=== PATIENT | female | born 1950 | race Caucasian/White ===

== ENCOUNTER → 2016-05-28 | Outpatient (REF) | payer MEDICARE, OTHER ==
[2016-05-28 12:31] LABS: ALBUMIN 3.7 GM/DL (3.2-5.2); ALBUMIN/GLOBULIN RATIO 1.09 (1.00-1.93); BILIRUBIN,TOTAL 0.4 MG/DL (0.2-1.0); CALCIUM LEVEL 8.7 MG/DL (8.8-10.2); CREATININE FOR GFR 1.02 MG/DL (0.55-1.02); GLOMERULAR FILTRATION RATE 57.9 (>45); POTASSIUM SERUM 4.4 MEQ/L (3.5-5.1); TOTAL PROTEIN 7.1 GM/DL (6.4-8.2)
== END ==
LOC: M SFHCCLAY 07:54
PROVIDERS: ATTEND Family Medicine
DX: E11.65 Type 2 diabetes mellitus with hyperglycemia (principal); E78.2 Mixed hyperlipidemia; E55.9 Vitamin D deficiency, unspecified

== ENCOUNTER → 2017-01-14 | Outpatient (REF) | payer MEDICARE, OTHER ==
[2017-01-14 11:53] LABS: ALBUMIN 3.8 GM/DL (3.2-5.2); ALBUMIN/GLOBULIN RATIO 1.19 (1.00-1.93); BILIRUBIN,TOTAL 0.4 MG/DL (0.2-1.0); CALCIUM LEVEL 8.7 MG/DL (8.8-10.2); GLOMERULAR FILTRATION RATE 59.1 (>45); POTASSIUM SERUM 4.4 MEQ/L (3.5-5.1)
== END ==
LOC: M SFHCCLAY 08:14
PROVIDERS: ATTEND Family Medicine
DX: E11.65 Type 2 diabetes mellitus with hyperglycemia (principal); E78.2 Mixed hyperlipidemia; E55.9 Vitamin D deficiency, unspecified

== ENCOUNTER → 2017-07-12 | Outpatient (REF) | payer MEDICARE, OTHER ==
[2017-07-12 12:03] LABS: TOTAL 25(OH) VITAMIN D 78.3 NG/ML (30.0-100.0)
[2017-07-12 12:11] LABS: ALBUMIN 3.8 GM/DL (3.2-5.2); ALBUMIN/GLOBULIN RATIO 1.15 (1.00-1.93); ALKALINE PHOSPHATASE 53 U/L (45-117); ALT/SGPT 27 U/L (12-78); ANION GAP 10 MEQ/L (8-16); AST/SGOT 17 U/L (7-37); BILIRUBIN,TOTAL 0.5 MG/DL (0.2-1.0); BLOOD UREA NITROGEN 25 MG/DL (7-18); CALCIUM LEVEL 9.1 MG/DL (8.8-10.2); CARBON DIOXIDE LEVEL 25 MEQ/L (21-32); CHLORIDE LEVEL 107 MEQ/L (98-107); CHOLESTEROL LEVEL 138 MG/DL (<200); CHOLESTEROL RISK RATIO 4.758 (<5); CREATININE FOR GFR 0.94 MG/DL (0.55-1.30); GLOMERULAR FILTRATION RATE > 60.0 (>45); GLUCOSE, FASTING 112 MG/DL (70-100); HDL CHOLESTEROL 29 MG/DL (>40); LDL CHOLESTEROL 81.8 MG/DL (<100); NON-HDL-C 109 MG/DL; POTASSIUM SERUM 4.6 MEQ/L (3.5-5.1); SODIUM LEVEL 142 MEQ/L (136-145); TOTAL PROTEIN 7.1 GM/DL (6.4-8.2); TRIGLYCERIDES LEVEL 136 MG/DL (<150)
[2017-07-12 12:45] LABS: ESTIMATED AVERAGE GLUCOSE 146 MG/DL (60-110); HEMOGLOBIN A1c 6.7 %
== END ==
LOC: M SFHCCLAY 08:04
DX: E11.65 Type 2 diabetes mellitus with hyperglycemia (principal); E78.2 Mixed hyperlipidemia; E55.9 Vitamin D deficiency, unspecified
CPT/HCPCS: 84443

== ENCOUNTER → 2018-01-13 | Outpatient (REF) | payer MEDICARE, OTHER ==
[2018-01-13 11:52] LABS: ALBUMIN 3.4 GM/DL (3.2-5.2); ALBUMIN/GLOBULIN RATIO 0.97 (1.00-1.93); ALKALINE PHOSPHATASE 97 U/L (45-117); ALT/SGPT 22 U/L (12-78); ANION GAP 10 MEQ/L (8-16); AST/SGOT 19 U/L (7-37); BILIRUBIN,TOTAL 0.5 MG/DL (0.2-1.0); BLOOD UREA NITROGEN 20 MG/DL (7-18); CALCIUM LEVEL 8.5 MG/DL (8.8-10.2); CARBON DIOXIDE LEVEL 26 MEQ/L (21-32); CHLORIDE LEVEL 106 MEQ/L (98-107); CHOLESTEROL LEVEL 133 MG/DL (<200); CHOLESTEROL RISK RATIO 4.586 (<5); CREATININE FOR GFR 0.93 MG/DL (0.55-1.30); GLOMERULAR FILTRATION RATE > 60.0 (>45); GLUCOSE, FASTING 108 MG/DL (70-100); HDL CHOLESTEROL 29 MG/DL (>40); LDL CHOLESTEROL 80 MG/DL (<100); NON-HDL-C 104 MG/DL; POTASSIUM SERUM 4.4 MEQ/L (3.5-5.1); SODIUM LEVEL 142 MEQ/L (136-145); TOTAL PROTEIN 6.9 GM/DL (6.4-8.2); TRIGLYCERIDES LEVEL 120 MG/DL (<150)
[2018-01-13 14:34] LABS: ESTIMATED AVERAGE GLUCOSE 140 MG/DL (60-110); HEMOGLOBIN A1c 6.5 %
== END ==
LOC: M SFHCCLAY 08:16
DX: E11.9 Type 2 diabetes mellitus without complications (principal); E78.2 Mixed hyperlipidemia
CPT/HCPCS: 80053

== ENCOUNTER → 2018-01-18 | Outpatient (REF) | payer MEDICARE, OTHER ==
[2018-01-18 20:03] LABS: CREATININE, URINE 47.3 MG/DL; MALB URINE SIEMENS < 5.0 MG/L
[2018-01-18 20:07] LABS: MAU/CREAT RATIO 10.6 MCG/MG (0.0-30.0)
== END ==
LOC: M SFHCCLAY 17:10
DX: E11.9 Type 2 diabetes mellitus without complications (principal)
CPT/HCPCS: 82043

== ENCOUNTER → 2018-07-31 | Outpatient (REF) | payer MEDICARE, OTHER ==
[~2018-07-31] MED LIST: ASPI81TA85 PO; ATOR1TAB21 PO; JANU100T PO; LOSARTAN/HCTZ PO; METF500T4 PO; OMEP40CA2 PO
[2018-07-31 12:01] LABS: BASO % 0.6 % (0.0-1.0); EOS # 0.2 10^3/uL (0.0-0.50); EOS % 3.3 % (0.0-3.0); HEMATOCRIT 35.9 % (36.0-47.0); HEMOGLOBIN 10.3 g/dl (12.0-15.5); LYMPH # 0.9 10^3/uL (1.5-4.5); LYMPH % 12.6 % (24.0-44.0); MEAN CORPUSCULAR HEMOGLOBIN 20.8 pg (27.0-33.0); MEAN CORPUSCULAR HGB CONC 28.7 g/dl (32.0-36.5); MEAN CORPUSCULAR VOLUME 72.4 fl (80.0-96.0); MONO # 0.6 10^3/uL (0.0-0.8); MONO % 8.4 % (0.0-5.0); NEUTROPHILS # 5.4 10^3/uL (1.8-7.7); NEUTROPHILS % 74.8 % (36.0-66.0); PLATELET COUNT, AUTOMATED 244 10^3/uL (150-450); RED BLOOD COUNT 4.96 10^6/uL (4.00-5.40); WHITE BLOOD COUNT 7.3 10^3/uL (4.0-10.0)
[2018-07-31 12:19] LABS: ALBUMIN 3.6 GM/DL (3.2-5.2); ALT/SGPT 20 U/L (12-78); BILIRUBIN,TOTAL 0.5 MG/DL (0.2-1.0); BLOOD UREA NITROGEN 21 MG/DL (7-18); CALCIUM LEVEL 8.6 MG/DL (8.8-10.2); CARBON DIOXIDE LEVEL 27 MEQ/L (21-32); CHLORIDE LEVEL 107 MEQ/L (98-107); CHOLESTEROL LEVEL 140 MG/DL (<200); CHOLESTEROL RISK RATIO 4.375 (<5); CREATININE FOR GFR 0.89 MG/DL (0.55-1.30); FREE T4 1.18 NG/DL (0.76-1.46); GLOMERULAR FILTRATION RATE > 60.0 (>45); GLUCOSE, FASTING 111 MG/DL (70-100); HDL CHOLESTEROL 32 MG/DL (>40); LDL CHOLESTEROL 82 MG/DL (<100); NON-HDL-C 108 MG/DL; POTASSIUM SERUM 4.6 MEQ/L (3.5-5.1); SODIUM LEVEL 140 MEQ/L (136-145); TRIGLYCERIDES LEVEL 130 MG/DL (<150)
[2018-07-31 12:27] LABS: TOTAL 25(OH) VITAMIN D 87.8 NG/ML (30.0-100.0)
[2018-08-03 21:06] LABS: FERRITIN 6 NG/ML (8-252); FOLATE 6.5 NG/ML (>5.4); IRON (FE) 26 UG/DL (50-170); PERCENT SATURATION 6.3 % (13.2-45.0); TOTAL IRON BINDING CAPACITY 413 UG/DL (250-450); VITAMIN B12 LEVEL 437 PG/ML (247-911)
== END ==
LOC: M SFHCCLAY 08:00
PROVIDERS: ATTEND Nurse Practitioner Family
DX: I10 Essential (primary) hypertension (principal); E78.2 Mixed hyperlipidemia; E11.9 Type 2 diabetes mellitus without complications; K21.9 Gastro-esophageal reflux disease without esophagitis; E55.9 Vitamin D deficiency, unspecified

== ENCOUNTER → 2018-08-17 | Outpatient (CLI) | payer MEDICARE, BC, OTHER ==
--- NOTE | 2018-08-18 08:02 | ECHO ---
DATE OF STUDY: 08/17/2018 REFERRING PROVIDER: Franci Hardy NP INDICATION: Heart murmur. HEIGHT: 163 cm. WEIGHT: 113 kg. DIMENSIONS: IVS: 1.2 LV: 4.6 LVPW: 1.0 LA: 3.9 Aorta: 2.7 IVC: 1.4 Mitral E wave velocity: 98 A-wave: 96 E prime septal: 7.6 E prime lateral: 7.6 Left atrial volume index 28 mL per meter square FINDINGS: This study is of acceptable technical quality especially considering the patient's body habitus. The patient is in sinus rhythm. Left ventricle is of normal size and systolic function, I estimate left ventricular ejection fraction (LVEF) 65-70%. Mild LVH is noted. Right ventricle is normal size and systolic function. Left atrium is of normal size. Right atrium was poorly visualized. Aortic valve appears mildly sclerotic. There is some restriction of cusp mobility, but by 2D imaging I do not assume more than mild aortic stenosis. Mitral, tricuspid and pulmonic valves appear normal. No pericardial effusion is noted. Inferior vena cava is of normal size. Aortic root and aortic arch appear normal. Abdominal aorta was not seen. Doppler interrogation of aortic valve reveals no insufficiency and mild stenosis with mean gradient of 14 mmHg. There is trace mitral and tricuspid insufficiency. Calculated pulmonary artery pressure is in 30s corresponding to mild pulmonary hypertension. Pulmonic valve exhibits trace insufficiency. Mitral inflow pattern and tissue Doppler imaging of mitral annulus reveal probably normal diastolic function of left ventricle even though tissue Doppler velocities are mildly reduced. CONCLUSIONS: 1. Study is of acceptable technical quality. 2. Borderline LVH with preserved LV systolic function and probably normal diastolic function. 3. Aortic sclerosis resulting into mild aortic stenosis (mean gradient 14 mmHg). 4. No further significant valvular disease. 5. Likely normal central venous pressure and mild pulmonary hypertension. COMMENTS: Subacute bacterial endocarditis (SBE) prophylaxis is not recommended. Followup echocardiogram is recommended in approximately 3-5 years.
== END ==
LOC: M CARPUL 07:57
PROVIDERS: ATTEND Nurse Practitioner Family
DX: I70.0 Atherosclerosis of aorta (principal)

== ENCOUNTER → 2019-02-01 | Outpatient (REF) | payer MEDICARE, OTHER ==
[~2019-02-01] MED LIST changes: +METF-791 PO; -METF500T4 PO; -OMEP40CA2 PO; +OMEP40CA97 PO
[2019-02-01 12:30] LABS: BASO % 0.4 % (0.0-1.0); EOS # 0.3 10^3/uL (0.0-0.5); EOS % 3.9 % (0.0-3.0); HEMATOCRIT 39.2 % (36.0-47.0); HEMOGLOBIN 11.3 g/dl (12.0-15.5); LYMPH # 0.9 10^3/uL (1.5-5.0); MEAN CORPUSCULAR HEMOGLOBIN 21.8 pg (27.0-33.0); MEAN CORPUSCULAR HGB CONC 28.8 g/dl (32.0-36.5); MEAN CORPUSCULAR VOLUME 75.5 fl (80.0-96.0); MONO # 0.6 10^3/uL (0.0-0.8); MONO % 8.4 % (0.0-5.0); NEUTROPHILS # 4.9 10^3/uL (1.5-8.5); PLATELET COUNT, AUTOMATED 241 10^3/uL (150-450); RED BLOOD COUNT 5.19 10^6/uL (4.00-5.40); WHITE BLOOD COUNT 6.7 10^3/uL (4.0-10.0)
[2019-02-01 12:34] LABS: PERCENT SATURATION 7.5 % (13.2-45.0)
== END ==
LOC: M SFHCCLAY 07:52
PROVIDERS: ATTEND Nurse Practitioner Family
DX: E61.1 Iron deficiency (principal); Z23 Encounter for immunization

== ENCOUNTER → 2019-09-28 | Outpatient (REF) | payer MEDICARE, OTHER ==
[~2019-09-28] MED LIST changes: -METF-791 PO; +METF-838 PO
[2019-09-28 12:33] LABS: BASO % 0.5 % (0.0-1.0); EOS # 0.2 10^3/uL (0.0-0.5); EOS % 2.6 % (0.0-3.0); HEMATOCRIT 42.5 % (36.0-47.0); HEMOGLOBIN 13.1 g/dl (12.0-15.5); MEAN CORPUSCULAR HEMOGLOBIN 23.9 pg (27.0-33.0); MEAN CORPUSCULAR HGB CONC 30.8 g/dl (32.0-36.5); MEAN CORPUSCULAR VOLUME 77.6 fl (80.0-96.0); MONO # 0.6 10^3/uL (0.0-0.8); MONO % 7.4 % (0.0-5.0); NEUTROPHILS # 5.6 10^3/uL (1.5-8.5); NEUTROPHILS % 75.2 % (36.0-66.0); PLATELET COUNT, AUTOMATED 243 10^3/uL (150-450); RED BLOOD COUNT 5.48 10^6/uL (4.00-5.40); WHITE BLOOD COUNT 7.4 10^3/uL (4.0-10.0)
[2019-09-28 12:50] LABS: ALBUMIN 3.7 GM/DL (3.2-5.2); ALT/SGPT 22 U/L (12-78); BILIRUBIN,TOTAL 0.6 MG/DL (0.2-1.0); BLOOD UREA NITROGEN 20 MG/DL (7-18); CALCIUM LEVEL 9.1 MG/DL (8.8-10.2); CARBON DIOXIDE LEVEL 28 MEQ/L (21-32); CHLORIDE LEVEL 107 MEQ/L (98-107); CHOLESTEROL LEVEL 143 MG/DL (<200); CHOLESTEROL RISK RATIO 4.612 (<5); CREATININE FOR GFR 0.88 MG/DL (0.55-1.30); FREE T4 1.12 NG/DL (0.76-1.46); GLOMERULAR FILTRATION RATE > 60.0 (>45); GLUCOSE, FASTING 101 MG/DL (70-100); HDL CHOLESTEROL 31 MG/DL (>40); IRON (FE) 37 UG/DL (50-170); LDL CHOLESTEROL 86 MG/DL (<100); NON-HDL-C 112 MG/DL; PERCENT SATURATION 10.1 % (13.2-45.0); POTASSIUM SERUM 4.6 MEQ/L (3.5-5.1); SODIUM LEVEL 141 MEQ/L (136-145); TOTAL IRON BINDING CAPACITY 365 UG/DL (250-450); TOTAL PROTEIN 7.1 GM/DL (6.4-8.2); TRIGLYCERIDES LEVEL 128 MG/DL (<150)
[2019-09-28 14:20] LABS: HEMOGLOBIN A1c 6.7 %
== END ==
LOC: M SFHCCLAY 07:59
PROVIDERS: ATTEND Nurse Practitioner Family
DX: E61.1 Iron deficiency (principal); K21.9 Gastro-esophageal reflux disease without esophagitis; E55.9 Vitamin D deficiency, unspecified; E78.2 Mixed hyperlipidemia; I10 Essential (primary) hypertension; E11.9 Type 2 diabetes mellitus without complications

== ENCOUNTER → 2019-10-02 | Outpatient (REF) | payer MEDICARE, OTHER ==
[2019-10-02 12:34] LABS: CREATININE, URINE 74.2 MG/DL; MALB URINE SIEMENS < 5.0 MG/L; MAU/CREAT RATIO 6.7 MCG/MG (0.0-30.0)
== END ==
LOC: M SFHCCLAY 11:35
PROVIDERS: ATTEND Nurse Practitioner Family
DX: E11.9 Type 2 diabetes mellitus without complications (principal)

== ENCOUNTER → 2020-02-19 | Outpatient (REF) | payer MEDICARE, OTHER ==
[~2020-02-19] MED LIST changes: -ASPI81TA85 PO; +ASPI81TA86 PO
[2020-02-19 12:08] LABS: BASO % 0.5 % (0.0-1.0); EOS # 0.2 10^3/uL (0.0-0.5); EOS % 2.9 % (0.0-3.0); HEMATOCRIT 40.3 % (36.0-47.0); HEMOGLOBIN 12.3 g/dl (12.0-15.5); LYMPH % 13.9 % (24.0-44.0); MEAN CORPUSCULAR HGB CONC 30.5 g/dl (32.0-36.5); MEAN CORPUSCULAR VOLUME 78.7 fl (80.0-96.0); MONO # 0.6 10^3/uL (0.0-0.8); MONO % 7.5 % (0.0-5.0); NEUTROPHILS # 5.6 10^3/uL (1.5-8.5); NEUTROPHILS % 74.8 % (36.0-66.0); PLATELET COUNT, AUTOMATED 223 10^3/uL (150-450); RED BLOOD COUNT 5.12 10^6/uL (4.00-5.40); WHITE BLOOD COUNT 7.5 10^3/uL (4.0-10.0)
[2020-02-19 12:23] LABS: HEMOGLOBIN A1c 6.1 %
[2020-02-19 12:42] LABS: ALBUMIN 3.6 GM/DL (3.2-5.2); BILIRUBIN,TOTAL 0.4 MG/DL (0.2-1.0); CALCIUM LEVEL 9.1 MG/DL (8.8-10.2); CHOLESTEROL RISK RATIO 4.032 (<5); CREATININE FOR GFR 1.07 MG/DL (0.55-1.30); FREE T4 1.19 NG/DL (0.76-1.46); GLOMERULAR FILTRATION RATE 54.1 (>45); POTASSIUM SERUM 4.8 MEQ/L (3.5-5.1); THYROID STIMULATING HORMONE 2.94 uIU/ML (0.358-3.740); TOTAL PROTEIN 6.7 GM/DL (6.4-8.2)
== END ==
LOC: M SFHCCLAY 07:50
PROVIDERS: ATTEND Nurse Practitioner Family
DX: E61.1 Iron deficiency (principal); K21.9 Gastro-esophageal reflux disease without esophagitis; E55.9 Vitamin D deficiency, unspecified; E78.2 Mixed hyperlipidemia; I10 Essential (primary) hypertension; E11.9 Type 2 diabetes mellitus without complications

== ENCOUNTER → 2020-09-09 | Outpatient (REF) | payer MEDICARE, OTHER ==
[2020-09-09 12:06] LABS: BASO # 0.1 10^3/uL (0.0-0.2); BASO % 0.6 % (0.0-1.0); EOS # 0.2 10^3/uL (0.0-0.5); EOS % 2.7 % (0.0-3.0); HEMATOCRIT 40.6 % (36.0-47.0); HEMOGLOBIN 12.7 g/dl (12.0-15.5); MEAN CORPUSCULAR HGB CONC 31.3 g/dl (32.0-36.5); MEAN CORPUSCULAR VOLUME 79.8 fl (80.0-96.0); MONO # 0.7 10^3/uL (0.0-0.8); MONO % 7.7 % (2.0-8.0); NEUTROPHILS # 6.6 10^3/uL (1.5-8.5); NEUTROPHILS % 76.5 % (36.0-66.0); PLATELET COUNT, AUTOMATED 221 10^3/uL (150-450); RED BLOOD COUNT 5.09 10^6/uL (4.00-5.40); WHITE BLOOD COUNT 8.6 10^3/uL (4.0-10.0)
[2020-09-09 12:49] LABS: ALBUMIN 3.5 GM/DL (3.2-5.2); ALT/SGPT 17 U/L (12-78); BILIRUBIN,TOTAL 0.6 MG/DL (0.2-1.0); BLOOD UREA NITROGEN 19 MG/DL (7-18); CALCIUM LEVEL 8.9 MG/DL (8.8-10.2); CARBON DIOXIDE LEVEL 26 MEQ/L (21-32); CHLORIDE LEVEL 106 MEQ/L (98-107); CHOLESTEROL LEVEL 125 MG/DL (<200); CHOLESTEROL RISK RATIO 3.676 (<5); CREATININE FOR GFR 0.87 MG/DL (0.55-1.30); FREE T4 1.05 NG/DL (0.76-1.46); GLOMERULAR FILTRATION RATE > 60.0 (>45); GLUCOSE, FASTING 105 MG/DL (70-100); HDL CHOLESTEROL 34 MG/DL (>40); LDL CHOLESTEROL 65 MG/DL (<100); NON-HDL-C 91 MG/DL; POTASSIUM SERUM 4.8 MEQ/L (3.5-5.1); SODIUM LEVEL 141 MEQ/L (136-145); TOTAL 25(OH) VITAMIN D 89.7 NG/ML (30.0-100.0); TRIGLYCERIDES LEVEL 131 MG/DL (<150)
[2020-09-09 13:24] LABS: HEMOGLOBIN A1c 6.3 %
== END ==
LOC: M SFHCCLAY 08:20
PROVIDERS: ATTEND Nurse Practitioner Family
DX: K21.9 Gastro-esophageal reflux disease without esophagitis (principal); E55.9 Vitamin D deficiency, unspecified; E78.2 Mixed hyperlipidemia; E11.9 Type 2 diabetes mellitus without complications; E66.01 Morbid (severe) obesity due to excess calories; I10 Essential (primary) hypertension

== ENCOUNTER → 2021-03-16 | Outpatient (REF) | payer MEDICARE, OTHER ==
[~2021-03-16] MED LIST changes: +OMEP40CA4 PO; -OMEP40CA97 PO
[2021-03-16 11:36] LABS: BASO # 0.1 10^3/uL (0.0-0.2); BASO % 0.7 % (0.0-1.0); EOS # 0.2 10^3/uL (0.0-0.5); EOS % 2.9 % (0.0-3.0); HEMATOCRIT 40.8 % (36.0-47.0); HEMOGLOBIN 12.4 g/dl (12.0-15.5); LYMPH % 15.1 % (24.0-44.0); MEAN CORPUSCULAR HEMOGLOBIN 23.8 pg (27.0-33.0); MEAN CORPUSCULAR HGB CONC 30.4 g/dl (32.0-36.5); MEAN CORPUSCULAR VOLUME 78.5 fl (80.0-96.0); MONO # 0.6 10^3/uL (0.0-0.8); MONO % 8.7 % (2.0-8.0); NEUTROPHILS # 4.9 10^3/uL (1.5-8.5); NEUTROPHILS % 72.2 % (36.0-66.0); PLATELET COUNT, AUTOMATED 229 10^3/uL (150-450); WHITE BLOOD COUNT 6.8 10^3/uL (4.0-10.0)
[2021-03-16 12:01] LABS: HEMOGLOBIN A1c 6.1 %
[2021-03-16 12:20] LABS: ALBUMIN 3.5 GM/DL (3.2-5.2); BILIRUBIN,TOTAL 0.6 MG/DL (0.2-1.0); CALCIUM LEVEL 9.2 MG/DL (8.8-10.2); CHOLESTEROL RISK RATIO 4.343 (<5); CREATININE FOR GFR 0.99 MG/DL (0.55-1.30); FREE T4 1.14 NG/DL (0.76-1.46); POTASSIUM SERUM 4.5 MEQ/L (3.5-5.1); THYROID STIMULATING HORMONE 2.17 uIU/ML (0.358-3.740); TOTAL PROTEIN 7.1 GM/DL (6.4-8.2)
== END ==
LOC: M SFHCCLAY 08:40
PROVIDERS: ATTEND Nurse Practitioner Family
DX: K21.9 Gastro-esophageal reflux disease without esophagitis (principal); E78.2 Mixed hyperlipidemia; E55.9 Vitamin D deficiency, unspecified; E11.9 Type 2 diabetes mellitus without complications; I10 Essential (primary) hypertension

== ENCOUNTER → 2021-09-30 | Outpatient (CLI) | payer MEDICARE, BC, OTHER | LOC: M CARPUL 08:16 | PROVIDERS: ATTEND Nurse Practitioner Family | DX: I35.8 Other nonrheumatic aortic valve disorders (principal) ==

== ENCOUNTER → 2021-10-05 | Outpatient (REF) | payer MEDICARE, OTHER ==
[2021-10-05 11:40] LABS: BASO # 0.1 10^3/uL (0.0-0.2); BASO % 0.7 % (0.0-1.0); EOS # 0.3 10^3/uL (0.0-0.5); EOS % 3.9 % (0.0-3.0); HEMATOCRIT 39.6 % (36.0-47.0); HEMOGLOBIN 12.2 g/dl (12.0-15.5); LYMPH # 1.2 10^3/uL (1.5-5.0); LYMPH % 16.7 % (24.0-44.0); MEAN CORPUSCULAR HEMOGLOBIN 24.1 pg (27.0-33.0); MEAN CORPUSCULAR HGB CONC 30.8 g/dl (32.0-36.5); MEAN CORPUSCULAR VOLUME 78.3 fl (80.0-96.0); MONO # 0.6 10^3/uL (0.0-0.8); MONO % 8.1 % (2.0-8.0); NEUTROPHILS # 5.1 10^3/uL (1.5-8.5); NEUTROPHILS % 70.3 % (36.0-66.0); PLATELET COUNT, AUTOMATED 211 10^3/uL (150-450); RED BLOOD COUNT 5.06 10^6/uL (4.00-5.40); WHITE BLOOD COUNT 7.3 10^3/uL (4.0-10.0)
[2021-10-05 11:57] LABS: HEMOGLOBIN A1c 7.1 %
[2021-10-05 12:49] LABS: ALBUMIN 3.5 GM/DL (3.2-5.2); BILIRUBIN,TOTAL 0.6 MG/DL (0.2-1.0); CALCIUM LEVEL 9.5 MG/DL (8.8-10.2); CHOLESTEROL RISK RATIO 4.406 (<5); CREATININE FOR GFR 1.1 MG/DL (0.55-1.30); FREE T4 1.14 NG/DL (0.76-1.46); GLOMERULAR FILTRATION RATE 52.3 (>39); POTASSIUM SERUM 4.8 MEQ/L (3.5-5.1); THYROID STIMULATING HORMONE 3.4 uIU/ML (0.358-3.740); TOTAL PROTEIN 7.1 GM/DL (6.4-8.2)
== END ==
LOC: M SFHCCLAY 08:04
PROVIDERS: ATTEND Nurse Practitioner Family
DX: E78.2 Mixed hyperlipidemia (principal); K21.9 Gastro-esophageal reflux disease without esophagitis; E55.9 Vitamin D deficiency, unspecified; E11.9 Type 2 diabetes mellitus without complications; I10 Essential (primary) hypertension; E66.01 Morbid (severe) obesity due to excess calories

== ENCOUNTER → 2022-04-05 | Outpatient (REF) | payer MEDICARE, OTHER ==
[2022-04-05 11:44] LABS: BASO # 0.1 10^3/uL (0.0-0.2); BASO % 0.6 % (0.0-1.0); EOS # 0.2 10^3/uL (0.0-0.5); EOS % 2.3 % (0.0-3.0); HEMATOCRIT 40.1 % (36.0-47.0); HEMOGLOBIN 12.1 g/dl (12.0-15.5); LYMPH # 1.2 10^3/uL (1.5-5.0); LYMPH % 13.9 % (24.0-44.0); MEAN CORPUSCULAR HEMOGLOBIN 23.8 pg (27.0-33.0); MEAN CORPUSCULAR HGB CONC 30.2 g/dl (32.0-36.5); MEAN CORPUSCULAR VOLUME 78.9 fl (80.0-96.0); MONO # 0.6 10^3/uL (0.0-0.8); MONO % 7.4 % (2.0-8.0); NEUTROPHILS # 6.3 10^3/uL (1.5-8.5); NEUTROPHILS % 75.4 % (36.0-66.0); PLATELET COUNT, AUTOMATED 224 10^3/uL (150-450); RED BLOOD COUNT 5.08 10^6/uL (4.00-5.40); WHITE BLOOD COUNT 8.3 10^3/uL (4.0-10.0)
[2022-04-05 11:57] LABS: HEMOGLOBIN A1c 5.8 % (4.0-6.0)
[2022-04-05 12:04] LABS: ALBUMIN 3.5 G/DL (3.2-5.2); BILIRUBIN,TOTAL 0.5 MG/DL (0.3-1.2); CALCIUM LEVEL 8.9 MG/DL (8.3-10.6); CHOLESTEROL RISK RATIO 3.72 (<5); CREATININE FOR GFR 1.02 MG/DL (0.55-1.30); GLOMERULAR FILTRATION RATE 56.9 (>39); HDL CHOLESTEROL 30.1 MG/DL (>40); LDL CHOLESTEROL 54.7 MG/DL (<100); POTASSIUM SERUM 4.8 MMOL/L (3.5-5.1); TOTAL 25(OH) VITAMIN D 109.2 NG/ML (20.0-100.0); TOTAL PROTEIN 6.8 G/DL (5.7-8.2)
== END ==
LOC: M SFHCCLAY 08:11
PROVIDERS: ATTEND Nurse Practitioner Family
DX: E55.9 Vitamin D deficiency, unspecified (principal); E78.2 Mixed hyperlipidemia; E11.9 Type 2 diabetes mellitus without complications; I10 Essential (primary) hypertension; Z79.899 Other long term (current) drug therapy

== ENCOUNTER → 2022-11-30 | Outpatient (REF) | payer MEDICARE, OTHER ==
[2022-11-30 12:14] LABS: BASO % 0.4 % (0.0-1.0); EOS # 0.1 10^3/uL (0.0-0.5); HEMATOCRIT 38.1 % (36.0-47.0); HEMOGLOBIN 11.4 g/dl (12.0-15.5); LYMPH % 14.2 % (24.0-44.0); MEAN CORPUSCULAR HEMOGLOBIN 22.9 pg (27.0-33.0); MEAN CORPUSCULAR HGB CONC 29.9 g/dl (32.0-36.5); MEAN CORPUSCULAR VOLUME 76.5 fl (80.0-96.0); MONO # 0.5 10^3/uL (0.0-0.8); MONO % 7.5 % (2.0-8.0); NEUTROPHILS # 5.2 10^3/uL (1.5-8.5); NEUTROPHILS % 75.5 % (36.0-66.0); PLATELET COUNT, AUTOMATED 209 10^3/uL (150-450); RED BLOOD COUNT 4.98 10^6/uL (4.00-5.40)
[2022-11-30 12:53] LABS: HEMOGLOBIN A1c 6.4 % (4.0-6.0)
[2022-11-30 13:14] LABS: ALBUMIN 3.6 G/DL (3.2-5.2); ALKALINE PHOSPHATASE 97 U/L (46-116); ALT/SGPT 12 U/L (7.0-40); AST/SGOT 9 U/L (<34); BILIRUBIN,TOTAL 0.6 MG/DL (0.3-1.2); BLOOD UREA NITROGEN 20 MG/DL (9-23); CALCIUM LEVEL 9.1 MG/DL (8.3-10.6); CARBON DIOXIDE LEVEL 26 MMOL/L (20-31); CHLORIDE LEVEL 106 MMOL/L (98-107); CHOLESTEROL LEVEL 120 MG/DL (<200); CHOLESTEROL RISK RATIO 4.04 (<5); CREATININE FOR GFR 0.95 MG/DL (0.55-1.30); GLOMERULAR FILTRATION RATE > 60.0 (>39); GLUCOSE, FASTING 116 MG/DL (74-106); HDL CHOLESTEROL 29.7 MG/DL (>40); IRON (FE) 33 UG/DL (50-170); LDL CHOLESTEROL 65.1 MG/DL (<100); NON-HDL-C 90.3 MG/DL; PERCENT SATURATION 9.1 % (13.2-45.0); POTASSIUM SERUM 4.9 MMOL/L (3.5-5.1); SODIUM LEVEL 141 MMOL/L (136-145); TOTAL IRON BINDING CAPACITY 361 UG/DL (250-425); TOTAL PROTEIN 6.7 G/DL (5.7-8.2); TRIGLYCERIDES LEVEL 126 MG/DL (<150)
[2022-11-30 13:15] LABS: THYROID STIMULATING HORMONE 3.562 uIU/ML (0.55-4.78); TOTAL 25(OH) VITAMIN D 97.6 NG/ML (20.0-100.0)
[2022-11-30 13:16] LABS: FREE T4 1.07 NG/DL (0.89-1.76)
== END ==
LOC: M SFHCCLAY 08:41
PROVIDERS: ATTEND Nurse Practitioner Family
DX: I10 Essential (primary) hypertension (principal); E11.9 Type 2 diabetes mellitus without complications; K21.9 Gastro-esophageal reflux disease without esophagitis; E55.9 Vitamin D deficiency, unspecified; E78.2 Mixed hyperlipidemia; E66.01 Morbid (severe) obesity due to excess calories; E61.1 Iron deficiency

== ENCOUNTER → 2023-06-09 | Outpatient (REF) | payer MEDICARE, BC, OTHER ==
[2023-06-09 13:17] LABS: HEMOGLOBIN A1c 5.9 % (4.0-6.0)
[2023-06-09 13:37] LABS: ALBUMIN 3.5 G/DL (3.2-5.2); ALKALINE PHOSPHATASE 70 U/L (46-116); ALT/SGPT 13 U/L (7.0-40); AST/SGOT 9 U/L (<34); BILIRUBIN,TOTAL 0.6 MG/DL (0.3-1.2); BLOOD UREA NITROGEN 20 MG/DL (9-23); CALCIUM LEVEL 8.8 MG/DL (8.3-10.6); CARBON DIOXIDE LEVEL 28 MMOL/L (20-31); CHLORIDE LEVEL 107 MMOL/L (98-107); CREATININE FOR GFR 0.93 MG/DL (0.55-1.30); GLOMERULAR FILTRATION RATE > 60.0 (>39); GLUCOSE, FASTING 112 MG/DL (74-106); POTASSIUM SERUM 4.7 MMOL/L (3.5-5.1); SODIUM LEVEL 141 MMOL/L (136-145); TOTAL PROTEIN 6.6 G/DL (5.7-8.2)
== END ==
LOC: M SFHCCLAY 08:54
PROVIDERS: ATTEND Nurse Practitioner Family
DX: I10 Essential (primary) hypertension (principal); E11.9 Type 2 diabetes mellitus without complications; K21.9 Gastro-esophageal reflux disease without esophagitis; E55.9 Vitamin D deficiency, unspecified; E78.2 Mixed hyperlipidemia; E66.01 Morbid (severe) obesity due to excess calories

== ENCOUNTER → 2024-01-09 | Outpatient (REF) | payer MEDICARE, BC ==
[2024-01-09 11:56] LABS: BASO % 0.6 % (0.0-1.0); EOS # 0.2 10^3/uL (0.0-0.5); EOS % 2.5 % (0.0-3.0); HEMATOCRIT 33.2 % (36.0-47.0); HEMOGLOBIN 9.2 g/dl (12.0-15.5); MEAN CORPUSCULAR HEMOGLOBIN 18.5 pg (27.0-33.0); MEAN CORPUSCULAR HGB CONC 27.7 g/dl (32.0-36.5); MEAN CORPUSCULAR VOLUME 66.9 fl (80.0-96.0); MONO # 0.5 10^3/uL (0.0-0.8); MONO % 7.8 % (2.0-8.0); NEUTROPHILS % 73.8 % (36.0-66.0); PLATELET COUNT, AUTOMATED 241 10^3/uL (150-450); RED BLOOD COUNT 4.96 10^6/uL (4.00-5.40); WHITE BLOOD COUNT 6.8 10^3/uL (4.0-10.0)
[2024-01-09 12:14] LABS: HEMOGLOBIN A1c 5.6 % (4.0-6.0)
[2024-01-09 12:28] LABS: THYROID STIMULATING HORMONE 3.147 uIU/ML (0.55-4.78); TOTAL 25(OH) VITAMIN D 67.6 NG/ML (20.0-100.0)
[2024-01-09 12:29] LABS: ALBUMIN 3.5 G/DL (3.2-5.2); BILIRUBIN,TOTAL 0.6 MG/DL (0.3-1.2); CALCIUM LEVEL 9.2 MG/DL (8.3-10.6); CHOLESTEROL RISK RATIO 3.95 (<5); CREATININE FOR GFR 0.98 MG/DL (0.55-1.30); FREE T4 1.24 NG/DL (0.89-1.76); GLOMERULAR FILTRATION RATE 59.2 (>39); HDL CHOLESTEROL 28.8 MG/DL (>40); NON-HDL-C 85.2 MG/DL; POTASSIUM SERUM 4.6 MMOL/L (3.5-5.1); TOTAL PROTEIN 6.9 G/DL (5.7-8.2)
== END ==
LOC: M SFHCCLAY 08:11
PROVIDERS: ATTEND Nurse Practitioner Family
DX: I35.8 Other nonrheumatic aortic valve disorders (principal); E11.9 Type 2 diabetes mellitus without complications; I10 Essential (primary) hypertension; E61.1 Iron deficiency; K21.9 Gastro-esophageal reflux disease without esophagitis; E55.9 Vitamin D deficiency, unspecified; E78.2 Mixed hyperlipidemia; E66.01 Morbid (severe) obesity due to excess calories

== ENCOUNTER → 2024-01-11 | Outpatient (REF) | payer MEDICARE, BC ==
[2024-01-11 19:24] LABS: PERCENT SATURATION 3.9 % (13.2-45.0)
== END ==
LOC: M SFHCCLAY 13:26
PROVIDERS: ATTEND Nurse Practitioner Family
DX: E61.1 Iron deficiency (principal)

== ENCOUNTER 2024-02-07 08:19 | Outpatient (CLI) | payer MEDICARE, BC ==
[~2024-02-07] VITALS: Ht 165.1 cm; Wt 113.2 kg
[2024-02-07 08:25] VITALS: BP 153/67; O2SAT 99
[2024-02-07] MEDS: IRON SUCROSE 25 MG in NS 23.75 ML IV ONE (09:02)
[2024-02-07 10:00] VITALS: BP 141/71; O2SAT 100
[2024-02-07] MEDS: IRON SUCROSE 475 MG in NS 250 ML IV ONE (10:03)
[2024-02-07 11:00] VITALS: BP 130/60; O2SAT 96
[2024-02-07 12:00] VITALS: BP 133/71; O2SAT 98
[2024-02-07 14:30] VITALS: BP 151/72; O2SAT 97
== END 2024-02-07 15:30 ==
LOC: M INFU 08:19
PROVIDERS: ATTEND Nurse Practitioner Family
DX: D50.9 Iron deficiency anemia, unspecified (principal); Z88.2 Allergy status to sulfonamides
CPT/HCPCS: 96365; 96366; J1756

== ENCOUNTER → 2024-07-10 | Outpatient (REF) | payer MEDICARE, BC ==
[2024-07-10 13:48] LABS: BASO % 0.5 % (0.0-1.0); EOS # 0.3 10^3/uL (0.0-0.5); EOS % 4.3 % (0.0-3.0); HEMATOCRIT 34.6 % (36.0-47.0); HEMOGLOBIN 9.9 g/dl (12.0-15.5); LYMPH % 15.8 % (24.0-44.0); MEAN CORPUSCULAR HEMOGLOBIN 20.5 pg (27.0-33.0); MEAN CORPUSCULAR HGB CONC 28.6 g/dl (32.0-36.5); MEAN CORPUSCULAR VOLUME 71.5 fl (80.0-96.0); MONO # 0.5 10^3/uL (0.0-0.8); MONO % 7.2 % (2.0-8.0); NEUTROPHILS # 4.7 10^3/uL (1.5-8.5); PLATELET COUNT, AUTOMATED 255 10^3/uL (150-450); RED BLOOD COUNT 4.84 10^6/uL (4.00-5.40); WHITE BLOOD COUNT 6.6 10^3/uL (4.0-10.0)
[2024-07-10 13:54] LABS: THYROID STIMULATING HORMONE 2.618 uIU/ML (0.55-4.78); TOTAL 25(OH) VITAMIN D 49.6 NG/ML (20.0-100.0)
[2024-07-10 13:56] LABS: FREE T4 1.11 NG/DL (0.89-1.76)
[2024-07-10 13:59] LABS: ALBUMIN 3.5 G/DL (3.2-5.2); ALKALINE PHOSPHATASE 87 U/L (35-104); ALT/SGPT 10 U/L (7.0-40); AST/SGOT 12 U/L (<34); BILIRUBIN,TOTAL 0.4 MG/DL (0.3-1.2); BLOOD UREA NITROGEN 19 MG/DL (9-23); CALCIUM LEVEL 9.2 MG/DL (8.3-10.6); CARBON DIOXIDE LEVEL 26 MMOL/L (20-31); CHLORIDE LEVEL 105 MMOL/L (98-107); CHOLESTEROL LEVEL 128 MG/DL (<200); CHOLESTEROL RISK RATIO 3.73 (<5); CREATININE FOR GFR 0.92 MG/DL (0.55-1.30); GLOMERULAR FILTRATION RATE > 60.0 (>39); GLUCOSE, FASTING 96 MG/DL (74-106); HDL CHOLESTEROL 34.3 MG/DL (>40); LDL CHOLESTEROL 73.9 MG/DL (<100); NON-HDL-C 93.7 MG/DL; POTASSIUM SERUM 4.8 MMOL/L (3.5-5.1); SODIUM LEVEL 143 MMOL/L (136-145); TOTAL PROTEIN 6.9 G/DL (5.7-8.2); TRIGLYCERIDES LEVEL 99 MG/DL (<150)
[2024-07-10 14:02] LABS: HEMOGLOBIN A1c 5.8 % (4.0-6.0)
[2024-07-10 14:18] LABS: CREATININE, URINE 25.5 MG/DL; MALB URINE SIEMENS < 3.0 MG/L
[2024-07-11 12:20] LABS: IRON (FE) 21 UG/DL (50-170); PERCENT SATURATION 5.5 % (13.2-45.0); TOTAL IRON BINDING CAPACITY 383 UG/DL (250-425)
== END ==
LOC: M SFHCCLAY 08:33
PROVIDERS: ATTEND Nurse Practitioner Family
DX: E11.9 Type 2 diabetes mellitus without complications (principal); I10 Essential (primary) hypertension; E61.1 Iron deficiency; K21.9 Gastro-esophageal reflux disease without esophagitis; E55.9 Vitamin D deficiency, unspecified; E78.2 Mixed hyperlipidemia; I35.8 Other nonrheumatic aortic valve disorders; E66.01 Morbid (severe) obesity due to excess calories

== ENCOUNTER → 2024-07-18 | Outpatient (CLI) | payer MEDICARE, BC ==
[~2024-07-18] VITALS: Ht 162.6 cm; Wt 112.3 kg
[~2024-07-18] MED LIST changes: +ALBUTEROL SULFATE 2.5MG/0.5ML INH NEB SOLN INH PRN; +EPINEPHrine INJ 1 MG/ML 1ML AMP IM PRN; +diphenhydrAMINE 50MG/ML VIAL IV PRN; +methylPREDNISolone 125MG 2ML VIAL IV PRN
[2024-07-18 12:05] VITALS: BP 146/67; O2SAT 98
[2024-07-18] MEDS: IRON SUCROSE 400 MG in NS 250 ML OVER 2.5 HRS IV ONE (12:49)
[2024-07-18 15:44] VITALS: BP 113/67; O2SAT 97
== END ==
LOC: M INFU 11:59
PROVIDERS: ATTEND Nurse Practitioner Family
DX: D50.1 Sideropenic dysphagia (principal); Z88.2 Allergy status to sulfonamides
CPT/HCPCS: 96365; 96366; J1756

== ENCOUNTER 2024-07-25 10:25 | Outpatient (CLI) | payer MEDICARE, BC ==
[~2024-07-25] VITALS: Ht 165.1 cm; Wt 112.2 kg
[2024-07-25 10:25] VITALS: BP 125/60; O2SAT 98
[2024-07-25] MEDS: IRON SUCROSE 400 MG in NS 250 ML OVER 2.5 HRS IV ONE (11:13)
[2024-07-25 13:00] VITALS: BP 122/64; O2SAT 98
[2024-07-25 13:45] VITALS: BP 139/65; O2SAT 98
== END 2024-07-25 14:02 ==
LOC: M INFU 10:25
PROVIDERS: ATTEND Nurse Practitioner Family
DX: D50.1 Sideropenic dysphagia (principal); Z88.2 Allergy status to sulfonamides
CPT/HCPCS: 96365; 96366; J1756

== ENCOUNTER → 2024-07-26 | Outpatient (CLI) | payer MEDICARE, BC ==
[~2024-07-26] MED LIST changes: -ALBUTEROL SULFATE 2.5MG/0.5ML INH NEB SOLN INH PRN; -EPINEPHrine INJ 1 MG/ML 1ML AMP IM PRN; -diphenhydrAMINE 50MG/ML VIAL IV PRN; -methylPREDNISolone 125MG 2ML VIAL IV PRN
== END ==
LOC: M WHC 12:51
PROVIDERS: ATTEND Nurse Practitioner Family
DX: Z12.31 Encounter for screening mammogram for malignant neoplasm of breast (principal); Z78.0 Asymptomatic menopausal state; R92.323 Mammographic fibroglandular density, bilateral breasts

== ENCOUNTER 2024-08-01 13:00 | Outpatient (CLI) | payer MEDICARE, BC ==
[~2024-08-01] VITALS: Ht 162.6 cm; Wt 115.0 kg
[2024-08-01 13:00] VITALS: BP 130/72; O2SAT 99
[~2024-08-01 13:00] MED LIST changes: +ALBUTEROL SULFATE 2.5MG/0.5ML INH CONCENTRATE NEB SOLN INH PRN; +EPINEPHrine INJ 1 MG/ML 1ML AMP IM PRN; +diphenhydrAMINE 50MG/ML VIAL IV PRN; +methylPREDNISolone 125MG 2ML VIAL IV PRN
[2024-08-01] MEDS: IRON SUCROSE 400 MG in NS 250 ML OVER 2.5 HRS IV ONE (14:02)
[2024-08-01 16:35] VITALS: BP 112/57; O2SAT 99
== END 2024-08-01 16:35 ==
LOC: M INFU 13:00
PROVIDERS: ATTEND Nurse Practitioner Family
DX: D50.1 Sideropenic dysphagia (principal); Z88.2 Allergy status to sulfonamides
CPT/HCPCS: 96365; 96366; J1756

== ENCOUNTER → 2024-08-13 | Outpatient (CLI) | payer MEDICARE, BC ==
[~2024-08-13] MED LIST changes: -ALBUTEROL SULFATE 2.5MG/0.5ML INH CONCENTRATE NEB SOLN INH PRN; -EPINEPHrine INJ 1 MG/ML 1ML AMP IM PRN; -diphenhydrAMINE 50MG/ML VIAL IV PRN; -methylPREDNISolone 125MG 2ML VIAL IV PRN
== END ==
LOC: M CARPUL 07:45
PROVIDERS: ATTEND Nurse Practitioner Family
DX: I35.8 Other nonrheumatic aortic valve disorders (principal); I08.0 Rheumatic disorders of both mitral and aortic valves; I35.0 Nonrheumatic aortic (valve) stenosis

== ENCOUNTER 2024-11-22 09:01 | Day surgery (SDC) | payer MEDICARE, BC ==
[~2024-11-22] VITALS: Ht 162.6 cm; Wt 111.9 kg
[~2024-11-22 09:01] MED LIST changes: +ECOT81TA5 PO; +LIDOCAINE 2% 100 MG/5 ML SDV (FOR ANES.) As Ordered ONE; +VALS80TA PO
[2024-11-22 10:53] VITALS: TEMP 97.2
[2024-11-22 11:09] VITALS: BP 141/63; O2SAT 98
== END 2024-11-22 11:21 | disposition home or self-care (01) ==
LOC: M OPP 09:01
PROVIDERS: ATTEND Surgery
DX: K57.30 Diverticulosis of large intestine without perforation or abscess without bleeding (principal); Z86.0100 Personal history of colon polyps, unspecified; Z88.2 Allergy status to sulfonamides; Z79.82 Long term (current) use of aspirin; Z79.84 Long term (current) use of oral hypoglycemic drugs; Z79.899 Other long term (current) drug therapy

== ENCOUNTER → 2025-01-31 | Outpatient (REF) | payer MEDICARE, BC ==
[~2025-01-31] MED LIST changes: -LIDOCAINE 2% 100 MG/5 ML SDV (FOR ANES.) As Ordered ONE
[2025-01-31 15:16] LABS: BASO # 0.1 10^3/uL (0.0-0.2); BASO % 0.7 % (0.0-1.0); EOS # 0.3 10^3/uL (0.0-0.5); EOS % 3.9 % (0.0-3.0); LYMPH # 1.0 10^3/uL (1.5-5.0); LYMPH % 14.4 % (24.0-44.0); MONO # 0.6 10^3/uL (0.0-0.8); MONO % 8.2 % (2.0-8.0); NEUTROPHILS # 5.2 10^3/uL (1.5-8.5); NEUTROPHILS % 72.4 % (36.0-66.0); PLATELET COUNT, AUTOMATED 205 10^3/uL (150-450)
[2025-01-31 15:20] LABS: ALT/SGPT 14.0 U/L (7.0-40); AST/SGOT 20.0 U/L (<34); CALCIUM LEVEL 9.2 MG/DL (8.3-10.6); CARBON DIOXIDE LEVEL 26.0 MMOL/L (20-31); CHLORIDE LEVEL 104.0 MMOL/L (98-107); CREATININE FOR GFR 1.03 MG/DL (0.55-1.30); GLOMERULAR FILTRATION RATE 57.1 (>39); IRON (FE) 32.0 UG/DL (50-170); PERCENT SATURATION 9.4 % (13.2-45.0); POTASSIUM SERUM 4.9 MMOL/L (3.5-5.1); SODIUM LEVEL 139.0 MMOL/L (136-145)
[2025-01-31 16:06] LABS: ESTIMATED AVERAGE GLUCOSE 117.0 MG/DL (60-110)
== END ==
LOC: M SFHCCLAY 08:26
PROVIDERS: ATTEND Nurse Practitioner Family
DX: I10 Essential (primary) hypertension (principal); E11.9 Type 2 diabetes mellitus without complications; E61.1 Iron deficiency; K21.9 Gastro-esophageal reflux disease without esophagitis; E55.9 Vitamin D deficiency, unspecified; E78.2 Mixed hyperlipidemia; I35.8 Other nonrheumatic aortic valve disorders; E66.01 Morbid (severe) obesity due to excess calories